=== PATIENT | male | born 1955 | race American Indian/Alaskan Native ===

== ENCOUNTER 2016-10-06 19:56 | Emergency (ER) | payer MEDICAID, OTHER ==
[2016-10-06 20:33] VITALS: BP 144/80
--- NOTE | 2016-10-06 20:45 | EDM.PDOC ---
ED HPI GENERAL MEDICAL PROBLEM - General Chief Complaint: Upper Extremity Injury/Pain Stated Complaint: RIGHT HAND PAIN/SWOLLEN Time Seen by Provider: 10/06/16 20:35 Source of Information: Reports: Patient History Limitations: Reports: No Limitations - History of Present Illness INITIAL COMMENTS - FREE TEXT/NARRATIVE: 61 yo male felt a sharp pain to the dorsum of his R hand last night and had sudden onset of localized swelling. Now the swelling is more diffuse. Has minimal tenderness to the dorsum of that hand and the wrist. Is on Plavix. Onset Date: 10/05/16 Duration: Hour(s): Location: Reports: Upper Extremity, Right Quality: Reports: Dull Severity: Mild Improves with: Reports: Rest, Other (time) Worsens with: Reports: Other (touching area hurts a little. ) Context: Reports: Other (on Plavix) Associated Symptoms: Reports: No Other Symptoms Treatments GEOGRAPHY HEAD: Reports: Other (see below) (None) Right Hand Pain Score (Numeric/FACES): 2 - Related Data Allergies Allergy/AdvReac Type Severity Reaction Status Date / Time Bees Allergy Anaphylactic Uncoded 03/11/14 09:28 Shock Home Meds: Home Meds Aspirin [Low Dose Aspirin EC] 81 mg PO DAILY 11/19/13 [History] Clopidogrel [Plavix] 75 mg PO DAILY 11/19/13 [History] Metoprolol Succinate [Toprol XL] 50 mg PO DAILY 11/19/13 [History] Nitroglycerin [Nitrostat] 0.4 mg SL ASDIRECTED PRN 11/19/13 [History] atorvaSTATin [Lipitor] 80 mg PO BEDTIME 11/19/13 [History] Past Medical History HEENT History: Reports: Impaired Vision Cardiovascular History: Reports: High Cholesterol, Hypertension, [place] Respiratory History: Reports: Other (See Below) Other Respiratory History: pneumonia in the past - Infectious Disease History Infectious Disease History: Reports: Chicken Pox, Influenza, Measles, Mumps Social & Family History - Tobacco Use Smoking Status *Q: Current Every Day Smoker Years of Tobacco use: 40 Packs/Tins Daily: 0.5 - Recreational Drug Use Recreational Drug Use: No Review of Systems - Review of Systems Review Of Systems: See Below Constitutional: Reports: No Symptoms Musculoskeletal: Reports: Hand Pain (R hand dorsally, mild) Skin: Reports: No Symptoms Neurological: Reports: No Symptoms ED EXAM, GENERAL - Physical Exam Exam: See Below Exam Limited By: No Limitations General Appearance: Alert, WD/WN, No Apparent Distress Eye Exam: Bilateral Eye: Normal Inspection Ears: Normal External Exam, Normal Canal, Hearing Grossly Normal Ear Exam: Bilateral Ear: Auricle Normal, Canal Normal Nose: Normal Inspection, Normal Mucosa, No Blood Throat/Mouth: Normal Inspection, Normal Lips, Normal Voice, No Airway Compromise Head: Atraumatic, Normocephalic Neck: Normal Inspection, Supple Respiratory/Chest: No Respiratory Distress, Lungs Clear, No Accessory Muscle Use Cardiovascular: Regular Rate, Rhythm Extremities: Other (R hand minimally puffy dorsally. Minimal tenderness. Wrist with full ROM. Veins on the dorsum of the R hand are less prominant. ) Neurological: Alert, Oriented, CN II-XII Intact, Normal Cognition, No Motor/ Sensory Deficits Psychiatric: Normal Affect, Normal Mood Skin Exam: Warm, Dry, Intact, Normal Color, No Rash, Other (skin is very well tanned.) Course - Vital Signs Last Recorded V/S: Last Vital Signs Temp 36.6 C 10/06/16 20:32 Pulse 81 10/06/16 20:32 Resp 18 10/06/16 20:32 BP 144/80 H 10/06/16 20:32 Pulse Ox 94 L 10/06/16 20:32 Departure - Departure Time of Disposition: 20:45 Disposition: Home, Self-Care 01 Condition: Good Clinical Impression: Bruise - Discharge Information Referrals: Jevon Grigsby PA-C [Primary Care Provider] - Forms: ED Department Discharge Additional Instructions: Elevation above the heart. Acetaminophen 1000 mg every 6 hrs as needed. Recheck as needed.
== END 2016-10-06 20:47 | disposition home or self-care (01) ==
LOC: JP.ED 19:56
DX: S60.221A Contusion of right hand, initial encounter (principal); H54.7 Unspecified visual loss; E78.00 Pure hypercholesterolemia, unspecified; I25.2 Old myocardial infarction; I10 Essential (primary) hypertension; F17.210 Nicotine dependence, cigarettes, uncomplicated; Z87.01 Personal history of pneumonia (recurrent); Z91.030 Bee allergy status; Z79.82 Long term (current) use of aspirin; Z79.899 Other long term (current) drug therapy; X58.XXXA Exposure to other specified factors, initial encounter
CPT/HCPCS: 99283

== ENCOUNTER 2017-03-11 17:22 | Emergency (ER) | payer MEDICAID, OTHER ==
[2017-03-11 17:37] VITALS: BP 154/74
--- NOTE | 2017-03-11 18:10 | EDM.PDOC ---
ED HPI GENERAL MEDICAL PROBLEM - General Chief Complaint: ENT Problem Stated Complaint: BLOODY NOSE Time Seen by Provider: 03/11/17 18:00 Source of Information: Reports: Patient History Limitations: Reports: No Limitations - History of Present Illness INITIAL COMMENTS - FREE TEXT/NARRATIVE: 61-year-old male had a fairly significant nosebleed earlier this evening which is very unusual for him. It scared him because he had trouble getting it stopped. It's now not bleeding. He is on Plavix and aspirin daily. No trauma. No illness. Blood pressures 154/74. Severity: Moderate Associated Symptoms: Reports: Headaches (Patient has a slight anterior left headache) - Related Data Allergies Allergy/AdvReac Type Severity Reaction Status Date / Time Bees Allergy Anaphylactic Uncoded 10/22/16 10:04 Shock Home Meds: Home Meds Aspirin [Low Dose Aspirin EC] 81 mg PO DAILY 11/19/13 [History] Clopidogrel [Plavix] 75 mg PO DAILY 11/19/13 [History] Metoprolol Succinate [Toprol XL] 50 mg PO DAILY 11/19/13 [History] Nitroglycerin [Nitrostat] 0.4 mg SL ASDIRECTED PRN 11/19/13 [History] atorvaSTATin [Lipitor] 80 mg PO DAILY 11/19/13 [History] Isosorbide Mononitrate [Imdur] 30 mg PO DAILY 10/18/16 [History] Past Medical History HEENT History: Reports: Epistaxis, Impaired Vision Cardiovascular History: Reports: High Cholesterol, Hypertension, [place] Respiratory History: Reports: Other (See Below) Other Respiratory History: pneumonia in the past - Infectious Disease History Infectious Disease History: Reports: Chicken Pox, Influenza, Measles, Mumps Social & Family History - Tobacco Use Smoking Status *Q: Current Every Day Smoker Years of Tobacco use: 40 Packs/Tins Daily: 0.5 - Caffeine Use Caffeine Use: Reports: Coffee - Alcohol Use Days Per Week of Alcohol Use: 2 Number of Drinks Per Day: 4 Total Drinks Per Week: 8 - Recreational Drug Use Recreational Drug Use: No ED ROS ENT - Review of Systems Review Of Systems: See Below Constitutional: Denies: Fever, Chills Respiratory: Denies: Shortness of Breath GI/Abdominal: Denies: Nausea, Vomiting Skin: Reports: No Symptoms Neurological: Reports: Headache ED EXAM, ENT - Physical Exam Exam: See Below Exam Limited By: No Limitations General Appearance: Alert, No Apparent Distress Nose: Other (There is some slight evidence of a recent epistaxis on the left side but no focal area of irritation or obvious site of bleeding.) Head: Atraumatic Respiratory/Chest: No Respiratory Distress Course - Vital Signs Last Recorded V/S: Last Vital Signs Temp 97.9 F 03/11/17 17:43 Pulse 82 03/11/17 17:43 Resp 18 03/11/17 17:43 BP 154/74 H 03/11/17 17:43 Pulse Ox 95 03/11/17 17:43 - Re-Assessments/Exams Free Text/Narrative Re-Assessment/Exam: 03/11/17 18:08 When the patient arrived his nose was not actively bleeding. All the clots were blown out in the airway freed, he was observed for another 30 minutes and no bleeding occurred. He will return if it recurs and he can't get it stopped but he was supplied with an external foam nasal compression pincher. Departure - Departure Time of Disposition: 18:18 Disposition: Home, Self-Care 01 Condition: Good Clinical Impression: Epistaxis - Discharge Information Instructions: Nosebleed, [id number] Referrals: Jevon Grigsby PA-C [Primary Care Provider] - Forms: ED Department Discharge Care Plan Goals: Be nice to your nose, avoid rubbing or blowing if possible. If bleeding recurs try external pressure as discussed and return if unable to control bleeding or other concerns.
== END 2017-03-11 18:18 | disposition home or self-care (01) ==
LOC: JP.ED 17:22
DX: R04.0 Epistaxis (principal); I10 Essential (primary) hypertension; E78.00 Pure hypercholesterolemia, unspecified; F17.210 Nicotine dependence, cigarettes, uncomplicated; Z79.82 Long term (current) use of aspirin; Z79.02 Long term (current) use of antithrombotics/antiplatelets; Z79.899 Other long term (current) drug therapy; Z91.030 Bee allergy status
CPT/HCPCS: 99283

== ENCOUNTER 2017-03-11 21:51 | Emergency (ER) | payer MEDICAID, OTHER | END 2017-03-11 23:15 | disposition left against medical advice (07) | LOC: JP.ED 21:51 | DX: Z53.21 Procedure and treatment not carried out due to patient leaving prior to being seen by health care provider (principal) ==

== ENCOUNTER 2018-10-16 16:38 | Emergency (ER) | payer MEDICAID ==
[2018-10-16 16:58] VITALS: BP 140/83
--- NOTE | 2018-10-16 18:00 | EDM.PDOC ---
ED HPI GENERAL MEDICAL PROBLEM - General Chief Complaint: Respiratory Problem Stated Complaint: SEVER ABD PAIN, SOB Time Seen by Provider: 10/16/18 17:30 Source of Information: Reports: Patient, Family History Limitations: Reports: No Limitations - History of Present Illness INITIAL COMMENTS - FREE TEXT/NARRATIVE: 63-year-old male with known lymphoma, had a PET scan 2 days ago and a CT of his neck. He has had oncology consultations but he has increasing pressure and pain in his abdomen and is struggling to breathe at night. Onset: Gradual Duration: Week(s): (Symptoms have been worsening for several weeks) Location: Reports: Chest, Abdomen Worsens with: Reports: Other (Lying down puts increased pressure on his abdomen and chest) Associated Symptoms: Denies: Fever/Chills, Headaches - Related Data Allergies Allergy/AdvReac Type Severity Reaction Status Date / Time Bees Allergy Anaphylactic Uncoded 10/16/18 16:56 Shock Home Meds: Home Meds Metoprolol Succinate [Toprol XL] 50 mg PO DAILY 11/19/13 [History] Nitroglycerin [Nitrostat] 0.4 mg SL ASDIRECTED PRN 11/19/13 [History] atorvaSTATin [Lipitor] 80 mg PO DAILY 11/19/13 [History] Past Medical History HEENT History: Reports: Epistaxis, Impaired Vision Cardiovascular History: Reports: High Cholesterol, Hypertension, [place], Stents Respiratory History: Reports: Other (See Below) Other Respiratory History: pneumonia in the past Genitourinary History: Reports: Acute Renal Failure Oncologic (Cancer) History: Reports: Lymphoma - Infectious Disease History Infectious Disease History: Reports: Chicken Pox, Measles, Mumps - Past Surgical History Cardiovascular Surgical History: Reports: Coronary Artery Stent GI Surgical History: Reports: Other (See Below) Other GI Surgeries/Procedures: enlarged spleen Social & Family History - Tobacco Use Smoking Status *Q: Current Every Day Smoker Years of Tobacco use: 47 Packs/Tins Daily: 0.5 - Caffeine Use Caffeine Use: Reports: Coffee - Recreational Drug Use Recreational Drug Use: No ED ROS GENERAL - Review of Systems Review Of Systems: See Below Constitutional: Denies: Fever, Chills HEENT: Reports: Other (Slow increased swelling of the neck due to adenopathy, no airway compromise) Respiratory: Reports: Shortness of Breath (Feels he can't take a deep breath, and has shortness of breath with activity) Cardiovascular: Reports: Chest Pain (More of a pressure in his lower chest and upper abdomen) GI/Abdominal: Reports: Abdominal Pain, Distension : Reports: No Symptoms Skin: Reports: No Symptoms ED EXAM, GENERAL - Physical Exam Exam: See Below Exam Limited By: No Limitations General Appearance: Alert, No Apparent Distress Eye Exam: Bilateral Eye: Normal Inspection (No jaundice) Throat/Mouth: Normal Inspection Head: Atraumatic Respiratory/Chest: No Respiratory Distress, Lungs Clear Cardiovascular: Regular Rate, Rhythm GI/Abdominal: Distended, Tender, Hepatomegaly Extremities: Normal Inspection. No: Pedal Edema Neurological: Alert, Oriented Psychiatric: Anxious Skin Exam: Warm, Dry Course - Vital Signs Last Recorded V/S: Last Vital Signs Temp 97.5 F 10/16/18 17:06 Pulse 99 10/16/18 17:06 Resp 24 H 10/16/18 17:06 BP 140/83 10/16/18 17:06 Pulse Ox 95 10/16/18 17:06 - Re-Assessments/Exams Free Text/Narrative Re-Assessment/Exam: 10/17/18 07:[address] scan of his neck and PET scan done within the last 3 days. PET scan does not show ascites and lungs look clear but there is no formal reading. I discussed this with his oncologist in [place], and she did not feel any hospitalization was needed at this time but will review the PET scan and call the patient tomorrow. He was given 10 hydrocodone to help him with pain and to help him sleep tonight. He will return tomorrow if worsening and does not hear from his other physicians. Departure - Departure Time of Disposition: 18:17 Disposition: Home, Self-Care 01 Clinical Impression: Abdominal pain Qualifiers: Abdominal location: upper abdomen, unspecified Qualified Code(s): R10.10 - Upper abdominal pain, unspecified Lymphoma Qualifiers: Lymphoma type: unspecified type - Discharge Information Instructions: Abdominal Pain, Adult Referrals: PCP,None [Primary Care Provider] - Forms: ED Department Discharge Care Plan Goals: Continue any current medications, and use stronger pain medication for the next 24-48 hours as needed. Return to the emergency room tomorrow if you do not hear from the oncologist or you feel you're worsening.
== END 2018-10-16 18:17 | disposition home or self-care (01) ==
LOC: JP.ED 16:38
DX: R10.10 Upper abdominal pain, unspecified (principal); C85.90 Non-Hodgkin lymphoma, unspecified, unspecified site; R06.02 Shortness of breath; E78.00 Pure hypercholesterolemia, unspecified; I10 Essential (primary) hypertension; I25.2 Old myocardial infarction; Z95.5 Presence of coronary angioplasty implant and graft; F17.210 Nicotine dependence, cigarettes, uncomplicated; Z91.030 Bee allergy status; Z79.899 Other long term (current) drug therapy
CPT/HCPCS: 99283

== ENCOUNTER 2018-10-30 07:56 | Day surgery (SDC) | payer MEDICAID ==
[~2018-10-30 07:56] MED LIST: Bupivacaine 0.5% 50 ML MDV ONE; Lidocaine 1% with EPINEPHrine 1:100,000 50 ML MDV ONE; Midazolam 1 MG/ML 2 ML SDV ONE; Propofol 200 MG/20 ML SDV ONE; fentaNYL 100 MCG/2 ML SDV ONE
[2018-10-30] MEDS ORDERED: Dextrose 5%-Lactated Ringers 1,000 ML IV SCH (08:30)
[2018-10-30] MEDS ORDERED: Metoprolol Succinate 50 MG Tab.ER PO ONE (08:37)
[2018-10-30] MEDS ORDERED: Ondansetron 4 MG/2 ML SDV IVPUSH ONE (08:59)
[2018-10-30] MEDS ORDERED: ceFAZolin 2 GM in Premix Bag 1 BAG IV ONE (09:00)
[2018-10-30 12:06] VITALS: BP 126/74; PULSE 70
--- NOTE | 2018-11-07 22:35 | OR ---
DATE OF PROCEDURE: 10/30/2018 PREOPERATIVE DIAGNOSIS: Indications for central venous access. POSTOPERATIVE DIAGNOSIS: Indications for central venous access. OPERATIVE PROCEDURE: Placement of Bard PowerPort via left subclavian vein approach ([id number]). ANESTHESIA: Local plus IV sedation. INDICATIONS FOR PROCEDURE: This is a 63-year-old presenting here with aggressive mantle cell lymphoma requiring a central venous access for anticipated chemotherapy. Plan is to proceed with a Bard port placement. Potential risks of the procedure including bleeding, infection, pneumothorax, injury to the vasculature, and problems if the port become infected or occluded were reviewed, and the patient wishes to proceed. DETAILS OF PROCEDURE: The patient was taken to the operating room and after IV sedation was administered, the upper chest and neck areas were prepped and draped. The left subclavian area was anesthetized with 1% lidocaine mixed with Marcaine, and left subclavian vein cannulated. A guidewire passed and positioned into the superior vena cava. Some additional local anesthetic was then injected. A transverse infraclavicular incision was made and carried down through the skin, subcutaneous tissue, and through the pectoralis major fascia. A pocket was then bluntly created behind the pectoralis major fascia. The Bard port at that point was then assembled and flushed with heparinized saline and was placed into the pocket. The catheter was cut such that the tip would lie in the lower superior vena cava and over the introducer and the peel-away catheter was placed over the guidewire. The Bard port catheter was placed without difficulty. Good in and outflow was noted. Ports were flushed once again with heparinized saline. The incision was closed with 2 layers of 3-0 Vicryl stitch deep and a 4-0 Vicryl subcuticular stitch and dressing applied. The patient was taken to the recovery room in satisfactory condition. There were no evident complications. Johnny Lundy MD /[id number]
== END 2018-10-30 12:17 | disposition home or self-care (01) ==
LOC: JP.SDS 07:56
PROVIDERS: ATTEND Surgery
DX: Z45.2 Encounter for adjustment and management of vascular access device (principal); C83.10 Mantle cell lymphoma, unspecified site; Z91.030 Bee allergy status
CPT/HCPCS: 36561; 77001; A9270; C1788; J0690; J1642; J2250; J2405; J2704; J3010; J3490; J7042

== ENCOUNTER 2020-01-17 09:30 | Emergency (ER) | payer MEDICARE, MEDICAID ==
[2020-01-17 10:54] VITALS: BP 128/69; PULSE 61
[2020-01-17] MEDS ORDERED: Sodium Chloride 0.9% 10 ML Syringe FLUSH PRN (11:45)
--- NOTE | 2020-01-17 11:47 | EDM.PDOC ---
ED HPI GENERAL MEDICAL PROBLEM - General Chief Complaint: Lower Extremity Injury/Pain Stated Complaint: LUMP ON LEFT HIP Time Seen by Provider: 01/17/20 11:30 Source of Information: Reports: Patient - History of Present Illness INITIAL COMMENTS - FREE TEXT/NARRATIVE: Rommel is a Very pleasant 64 year old male presents to [place] ER for evaluation of bilateral groin swelling. Rommel has a significant medical history for Mantle Cell Lymphoma which is very aggressive and Rommel believes swelling in bilateral groin is related or recurrence of mantle cell cancer. Rommel feels fine without fever, chills sweats weakness or concerning symptoms of infection, sepsis, low Hgb or electrolyte abnormality. Rommel is very concerned regarding recurrence of cancer at this time. Rommel reports it took over 2 months from diagnosis until initiating treatment, so felt ER evaluation would be most appropriate due to aggressive, rapid nature of Mantle cell lymphoma. Rommel reports the swelling in the left groin was the size of 2 guzmán beans yesterday and swelling right groin was not present yesterday. Neck Pain Score (Numeric/FACES): 4 - Related Data Allergies Allergy/AdvReac Type Severity Reaction Status Date / Time adhesive tape Allergy Rash Verified 01/17/20 11:01 Bees Allergy Severe Anaphylactic Uncoded 01/17/20 11:01 Shock Home Meds: Home Meds Metoprolol Succinate [Toprol XL] 50 mg PO DAILY 11/19/13 [History] Nitroglycerin [Nitrostat] 0.4 mg SL ASDIRECTED PRN 11/19/13 [History] atorvaSTATin [Lipitor] 80 mg PO DAILY 11/19/13 [History] oxyCODONE ER [OxyCONTIN] 10 - 325 mg PO Q6HR PRN 10/30/18 [History] Acyclovir 200 mg PO BID 01/17/20 [History] Finasteride [Proscar] 5 mg PO DAILY 01/17/20 [History] Furosemide 40 mg PO DAILY 01/17/20 [History] Tamsulosin HCl 0.4 mg PO DAILY 01/17/20 [History] Past Medical History HEENT History: Reports: Epistaxis, Impaired Vision, Other (See Below) Other HEENT History: wears glasses Cardiovascular History: Reports: High Cholesterol, Hypertension, [place], SOB on Exertion, Stents, Syncope Respiratory History: Reports: Other (See Below) Other Respiratory History: pneumonia in the past Gastrointestinal History: Reports: None Genitourinary History: Reports: Acute Renal Failure Endocrine/Metabolic History: Reports: Obesity/BMI 30+ Hematologic History: Reports: Other (See Below) Other Hematologic History: low platelets Oncologic (Cancer) History: Reports: Lymphoma Dermatologic History: Reports: Other (See Below) Other Dermatologic History: rash bilat lower legs - Infectious Disease History Infectious Disease History: Reports: Chicken Pox, Measles - Past Surgical History HEENT Surgical History: Reports: None Cardiovascular Surgical History: Reports: Coronary Artery Stent Respiratory Surgical History: Reports: None GI Surgical History: Reports: Other (See Below) Other GI Surgeries/Procedures: enlarged spleen and liver Male Surgical History: Reports: None Endocrine Surgical History: Reports: None Oncologic Surgical History: Reports: Other (See Below) Other Oncologic Surgeries/Procedures: bone marrow biopsy Dermatological Surgical History: Reports: None Social & Family History - Family History Cardiac: Reports: [place] Musculoskeletal: Reports: Back pain, Chronic Neurological: Reports: Alzheimers Disease Oncologic: Reports: Breast, Liver - Tobacco Use Smoking Status *Q: Current Every Day Smoker Years of Tobacco use: 48 Packs/Tins Daily: 0.8 - Caffeine Use Caffeine Use: Reports: Coffee - Recreational Drug Use Recreational Drug Use: Yes Review of Systems - Review of Systems Review Of Systems: Comprehensive ROS is negative, except as noted in HPI. ED EXAM, GENERAL - Physical Exam Exam: See Below Exam Limited By: No Limitations General Appearance: Alert, WD/WN, No Apparent Distress Eye Exam: Bilateral Eye: EOMI, Normal Inspection Ears: Normal External Exam, Hearing Grossly Normal Nose: Normal Inspection Throat/Mouth: Normal Inspection, Normal Voice, No Airway Compromise Head: Normocephalic Neck: Normal Inspection. No: Lymphadenopathy (R), Lymphadenopathy (L) Respiratory/Chest: No Respiratory Distress, Lungs Clear, Normal Breath Sounds, Chest Non-Tender Cardiovascular: Normal Peripheral Pulses, Regular Rate, Rhythm GI/Abdominal: Normal Bowel Sounds, Soft, Non-Tender (Male) Exam: No Hernia, Other (Fullness left groin size of large egg and fullnes right groin size of oblong dime. ) ED TRAUMA EXTREMITY PROCEDURES - Additional/Other Procedure(s) Other (Free Text) Procedure(s): POINT OF CARE ULTRASOUND- SOFT TISSUE EVALUATION Left Groin Indication: Reactive Lymph node vs Abscess Finding: No Fb noted, with cobble stoning of soft tissue indicating infection or inflammation. Dark (anechogenic round mass) without fluid wave and non compressible area measures approximately 8cm x 6 cm x 6 cm noted under area of swelling indicating. No actions taken regarding findings for mass as unable to differentiate from abscess (dark) or reactive lymph node. Benefit of needle aspiration does not out weight risk before and confirmed after speaking with oncology. A bedside ultrasound was performed, and interpreted by myself. Image obtained and reviewed with the patient at bedside and saved, when possible. Patient tolerated the procedure well. POINT OF CARE ULTRASOUND- SOFT TISSUE EVALUATION Right Groin Finding: No Fb noted, with cobble stoning of soft tissue indicating infection or inflammation. Dark (anechogenic round mass) without fluid wave and non compressible area measures approximately 3cm x 2 cm x 2 cm noted under area of swelling indicating. No actions taken regarding findings for mass as unable to differentiate from abscess (dark) or reactive lymph node. Benefit of needle aspiration does not out weight risk before and confirmed after speaking with oncology. A bedside ultrasound was performed, and interpreted by myself. Image obtained and reviewed with the patient at bedside and saved, when possible. Patient tolerated the procedure well. Course - Vital Signs Last Recorded V/S: Last Vital Signs Temp 35.9 C L 01/17/20 11:08 Pulse 61 01/17/20 11:08 Resp 16 01/17/20 11:08 BP 128/69 01/17/20 11:08 Pulse Ox 97 01/17/20 11:08 - Orders/Labs/Meds Orders: Active Orders 24 hr Category Date Time Status Cardiac Monitoring [RC] .As Directed Care 01/17/20 11:46 Active Peripheral IV Care [RC] . DIRECTED Care 01/17/20 11:46 Active Sodium Chloride 0.9% [Saline Flush] Med 01/17/20 11:45 Active 10 ml FLUSH ASDIRECTED PRN Peripheral IV Insertion Adult [OM.PC] Urgent Oth 01/17/20 11:46 Ordered Medication Orders Sodium Chloride (Saline Flush) 10 ml FLUSH ASDIRECTED PRN PRN Reason: Keep Vein Open Labs: Laboratory Tests 01/17/20 01/17/20 01/17/20 Range/Units 11:56 11:56 11:56 WBC (4.5-11.0) K/uL RBC (4.30-5.90) M/uL Hgb (12.0-15.0) g/dL Hct (40.0-54.0) % MCV (80-98) fL MCH (27-31) pg MCHC (32-36) % Plt Count (150-400) K/uL Neut % (Auto) (36-66) % Lymph % (Auto) (24-44) % Potter % (Auto) (2-6) % Eos % (Auto) (2-4) % Baso % (Auto) (0-1) % ESR 33 H (0-20) mm/hr Sodium (140-148) mmol/L Potassium (3.6-5.2) mmol/L Chloride (100-108) mmol/L Carbon Dioxide (21-32) mmol/L Anion Gap (5.0-14.0) mmol/L BUN (7-18) mg/dL Creatinine (0.8-1.3) mg/dL Est Cr Clr Drug Dosing mL/min Estimated GFR (MDRD) (>60) Glucose (74-106) mg/dL Lactic Acid 0.5 (0.4-2.0) mmol/L Calcium (8.5-10.1) mg/dL Total Bilirubin (0.2-1.0) mg/dL AST (15-37) U/L ALT (12-78) U/L Alkaline Phosphatase (46-116) U/L C-Reactive Protein < 0.05 (0.0-0.3) mg/dL Total Protein (6.4-8.2) g/dL Albumin (3.4-5.0) g/dL Globulin (2.3-3.5) g/dL Albumin/Globulin Ratio (1.2-2.2) 01/17/20 01/17/20 Range/Units 11:56 11:56 WBC 5.9 (4.5-11.0) K/uL RBC 4.10 L (4.30-5.90) M/uL Hgb 12.4 D (12.0-15.0) g/dL Hct 37.2 L (40.0-54.0) % MCV 91 (80-98) fL MCH 30 (27-31) pg MCHC 33 (32-36) % Plt Count 112 L (150-400) K/uL Neut % (Auto) 71 H (36-66) % Lymph % (Auto) 18 L (24-44) % Potter % (Auto) 8 H (2-6) % Eos % (Auto) 3 (2-4) % Baso % (Auto) 0 (0-1) % ESR (0-20) mm/hr Sodium 142 (140-148) mmol/L Potassium 4.0 (3.6-5.2) mmol/L Chloride 106 (100-108) mmol/L Carbon Dioxide 25 (21-32) mmol/L Anion Gap 10.7 (5.0-14.0) mmol/L BUN 28 H (7-18) mg/dL Creatinine 1.6 H (0.8-1.3) mg/dL Est Cr Clr Drug Dosing 46.64 mL/min Estimated GFR (MDRD) 44 L (>60) Glucose 97 (74-106) mg/dL Lactic Acid (0.4-2.0) mmol/L Calcium 8.9 (8.5-10.1) mg/dL Total Bilirubin 0.4 (0.2-1.0) mg/dL AST 23 (15-37) U/L ALT 32 (12-78) U/L Alkaline Phosphatase 81 (46-116) U/L C-Reactive Protein (0.0-0.3) mg/dL Total Protein 7.1 (6.4-8.2) g/dL Albumin 3.6 (3.4-5.0) g/dL Globulin 3.5 (2.3-3.5) g/dL Albumin/Globulin Ratio 1.0 L (1.2-2.2) Meds: Medications Generic Name Dose Route Start Last Admin Trade Name Freq PRN Reason Stop Dose Admin Sodium Chloride 10 ml 01/17/20 11:45 Saline Flush FLUSH ASDIRECTED PRN Keep Vein Open - Re-Assessments/Exams Free Text/Narrative Re-Assessment/Exam: Blood test results are not overly concerning for infection but reactive lymph nodes are likely with recurrence of mantle cell lymphoma. Requested recent blood tests from [facility] visit in the last 1-2 weeks. Requested [facility] note regarding Chemotherapy treatments and current prevention. Rituxan last dose Dec 01 due every q8week next due Jan 26. Active chemotherapy treatment: RCHOP 2018 x 1 intermittent dialysis due to poor renal function. Post left anterior chest. VRCAP January 2019 x 6 Cycle without anthracycline. Rituxan since ending acute treatment. James is on acyclovir for viral illness prevention. 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 Treating oncologist: Dasha Cordova MD in [place]. Recommended contacting [facility] on Saturday for recommended follow-up and imaging. 01/17/20 13:25 Reviewed [facility] Records: Blood test 12/22/2019 CMP: Glu 99 BUN: 31 Creat: 1.77 Sod:140 Pot: 4.3 Cl:107 CO2: 24 Walter: 9.2 Alb: 4 Alk: 46 AST:21 ALT:21 Bili T: 0.3 CBC: WBC: 4.2 RBC: 4.05 Hgb:12.6 Hct:36.8 Plt: 101 Blood test 12/02/2019 CMP: Glu 99 BUN: 24 Creat: 1.78 Sod:141 Pot: 4.5 Cl:110 CO2: 27 Walter: 9.0 Alb: 4 Alk: 72 AST:20 ALT:22 Bili T: 0.3 CBC: WBC: 5.4 RBC: 3.83 Hgb:11.8 Hct:35.9 Plt: 75 CODE STATUS: DNR: 02/02/2019 Departure - Departure Time of Disposition: 13:48 Disposition: Home, W Home Health Agency 06 Clinical Impression: Lymph node enlargement - Discharge Information Referrals: Jhonny Bryan TRANSIT MIXER OPERATOR [Primary Care Provider] - Forms: ED Department Discharge Additional Instructions: 1. Call [facility] on Saturday to talk to Oncology nurse about oncology assessment this week which may include CT or MRI imaging. 2. Continue current treatment as recommended. 3. No additional Interventions or Imaging recommended at this time, per mold construction supervisor oncologist, Dr Boo. 4. Return to ER if fever, lightheadedness, weakness, shortness or breath, chest pain or new concerning symptoms. 5. Call PCP to discuss ER visit and follow-up when recommended. Sepsis Event Note (ED) - Evaluation Sepsis Screening Result: No Definite Risk - Focused Exam Vital Signs: Vital Signs Temp Pulse Resp BP Pulse Ox 01/17/20 11:08 35.9 C L 61 16 128/69 97 01/17/20 10:53 35.9 C L 61 16 128/69 97 - My Orders Last 24 Hours: My Active Orders 01/17/20 11:45 Sodium Chloride 0.9% [Saline Flush] 10 ml FLUSH ASDIRECTED PRN 01/17/20 11:46 Cardiac Monitoring [RC] .As Directed Peripheral IV Care [RC] . DIRECTED Peripheral IV Insertion Adult [OM.PC] Urgent - Assessment/Plan Last 24 Hours: My Active Orders 01/17/20 11:45 Sodium Chloride 0.9% [Saline Flush] 10 ml FLUSH ASDIRECTED PRN 01/17/20 11:46 Cardiac Monitoring [RC] .As Directed Peripheral IV Care [RC] . DIRECTED Peripheral IV Insertion Adult [OM.PC] Urgent
== END 2020-01-17 14:14 | disposition home health service (06) ==
LOC: JP.ED 09:30
DX: R59.9 Enlarged lymph nodes, unspecified (principal); C83.10 Mantle cell lymphoma, unspecified site; E78.00 Pure hypercholesterolemia, unspecified; I10 Essential (primary) hypertension; I25.2 Old myocardial infarction; E66.9 Obesity, unspecified; F17.210 Nicotine dependence, cigarettes, uncomplicated; Z91.048 Other nonmedicinal substance allergy status; Z91.030 Bee allergy status; Z79.899 Other long term (current) drug therapy; Z68.30 Body mass index [BMI] 30.0-30.9, adult
CPT/HCPCS: 36415; 80053; 83605; 85025; 85651; 86140; 99283

== ENCOUNTER 2021-02-13 10:03 | Emergency (ER) | payer MEDICARE ==
[2021-02-13] MEDS ORDERED: fentaNYL 100 MCG/2 ML SDV IM ONE (11:42)
[2021-02-13 12:35] VITALS: BP 117/64; PULSE 51
--- NOTE | 2021-02-13 12:51 | EDM.PDOC ---
ED HPI GENERAL MEDICAL PROBLEM - General Chief Complaint: Abdominal Pain Stated Complaint: SOB, HEAD BURNING Time Seen by Provider: 02/13/21 11:20 Source of Information: Reports: Patient, Family, Provider History Limitations: Reports: No Limitations - History of Present Illness INITIAL COMMENTS - FREE TEXT/NARRATIVE: 65-year-old male who is being followed for treatment for lymphoma, was recently down at the [facility] for an experimental treatment. They did hold the treatment however after he developed some abdominal discomfort. An evaluation with an ultrasound revealed mild splenomegaly. The patient was given a prescription for oxycodone, he went in to fill the prescription into the clinic in [place] today and commented to the staff that he was still having abdominal pain so they recommended to go to the emergency room. It really is unchanged from previous levels of pain, however he developed a brief low-grade fever and chills 2 nights ago which has resolved. He has no nausea or vomiting. No recent trauma. Onset: Gradual Duration: Week(s): (Symptoms for the last 1 to 2 weeks) Location: Reports: Abdomen Quality: Reports: Ache, Throbbing Improves with: Reports: None Worsens with: Reports: Eating, Movement Associated Symptoms: Reports: Cough, Weakness. Denies: Chest Pain, Fever/Chills, Nausea/Vomiting, Shortness of Breath Right Abdomen Pain Score (Numeric/FACES): 7 - Related Data Allergies Allergy/AdvReac Type Severity Reaction Status Date / Time adhesive tape Allergy Rash Verified 02/13/21 10:52 Bees Allergy Severe Anaphylactic Uncoded 02/13/21 10:52 Shock Home Meds: Home Meds Metoprolol Succinate [Toprol XL] 50 mg PO DAILY 11/19/13 [History] Nitroglycerin [Nitrostat] 0.4 mg SL ASDIRECTED PRN 11/19/13 [History] oxyCODONE ER [OxyCONTIN] 10 - 325 mg PO Q6HR PRN 10/30/18 [History] Acyclovir 200 mg PO BID 01/17/20 [History] Finasteride [Proscar] 5 mg PO DAILY 01/17/20 [History] Tamsulosin HCl 0.4 mg PO DAILY 01/17/20 [History] Rosuvastatin [Crestor] 40 mg PO DAILY 02/13/21 [History] Past Medical History HEENT History: Reports: Epistaxis, Impaired Vision, Other (See Below) Other HEENT History: wears glasses Cardiovascular History: Reports: High Cholesterol, Hypertension, [place], SOB on Exertion, Stents, Syncope Respiratory History: Reports: Other (See Below) Other Respiratory History: pneumonia in the past Gastrointestinal History: Reports: None Genitourinary History: Reports: Acute Renal Failure Endocrine/Metabolic History: Reports: Obesity/BMI 30+ Hematologic History: Reports: Other (See Below) Other Hematologic History: low platelets Oncologic (Cancer) History: Reports: Lymphoma Dermatologic History: Reports: Other (See Below) Other Dermatologic History: rash bilat lower legs - Infectious Disease History Infectious Disease History: Reports: Chicken Pox, Measles - Past Surgical History HEENT Surgical History: Reports: None Cardiovascular Surgical History: Reports: Coronary Artery Stent Respiratory Surgical History: Reports: None GI Surgical History: Reports: Other (See Below) Other GI Surgeries/Procedures: enlarged spleen and liver Male Surgical History: Reports: None Endocrine Surgical History: Reports: None Oncologic Surgical History: Reports: Other (See Below) Other Oncologic Surgeries/Procedures: bone marrow biopsy Dermatological Surgical History: Reports: None Social & Family History - Family History Cardiac: Reports: [place] Musculoskeletal: Reports: Back pain, Chronic Neurological: Reports: Alzheimers Disease Oncologic: Reports: Breast, Liver - Tobacco Use Tobacco Use Status *Q: Heavy Tobacco User Years of Tobacco use: 50 Packs/Tins Daily: 1 - Caffeine Use Caffeine Use: Reports: Coffee - Recreational Drug Use Recreational Drug Use: No ED ROS GENERAL - Review of Systems Review Of Systems: See Below Constitutional: Reports: Fever (Low-grade fever 2 nights ago), Chills, Malaise HEENT: Denies: Nosebleed, Throat Pain Respiratory: Denies: Shortness of Breath, Cough Cardiovascular: Denies: Chest Pain GI/Abdominal: Reports: Abdominal Pain, Decreased Appetite. Denies: Nausea, Vomiting Skin: Reports: Other (No jaundice, scattered bruises are present). Denies: Pallor Neurological: Denies: Headache Psychiatric: Reports: No Symptoms ED EXAM, GI/ABD - Physical Exam Exam: See Below Exam Limited By: No Limitations General Appearance: Alert, No Apparent Distress Eyes: Bilateral: Normal Appearance Respiratory/Chest: No Respiratory Distress, Lungs Clear Cardiovascular: Regular Rate, Rhythm. No: Tachycardia GI/Abdominal Exam: Soft, Tender, Other (Does react with tenderness to various areas on the abdomen but no focal tenderness or rebound) Neurological: Alert, Oriented Psychiatric: Normal Affect, Normal Mood Skin Exam: Warm, Dry Course - Vital Signs Last Recorded V/S: Last Vital Signs Temp 98.3 F 02/13/21 10:56 Pulse 51 L 02/13/21 12:34 Resp 18 02/13/21 10:56 BP 117/64 02/13/21 12:34 Pulse Ox 93 L 02/13/21 12:34 - Orders/Labs/Meds Labs: Laboratory Tests 02/13/21 02/13/21 02/13/21 Range/Units 11:50 11:50 11:50 WBC 4.7 (4.5-11.0) K/uL RBC 3.46 L (4.30-5.90) M/uL Hgb 11.1 L (12.0-15.0) g/dL Hct 33.4 L (40.0-54.0) % MCV 97 (80-98) fL MCH 32 H (27-31) pg MCHC 33 (32-36) % Plt Count 21 L* (150-400) K/uL Neut % (Auto) 61.1 (36-66) % Lymph % (Auto) 33.8 (24-44) % Upson % (Auto) 4.9 (2-6) % Eos % (Auto) 0.0 L (2-4) % Baso % (Auto) 0.2 (0-1) % PT 11.6 H (9.2-10.6) sec INR 1.1 Sodium 133 L (140-148) mmol/L Potassium 4.2 (3.6-5.2) mmol/L Chloride 98 L (100-108) mmol/L Carbon Dioxide 22 (21-32) mmol/L Anion Gap 17.2 H (5.0-14.0) mmol/L BUN 34 H (7-18) mg/dL Creatinine 1.6 H (0.8-1.3) mg/dL Est Cr Clr Drug Dosing 46.03 mL/min Estimated GFR (MDRD) 44 L (>60) Glucose 96 (74-106) mg/dL Calcium 7.8 L (8.5-10.1) mg/dL Total Bilirubin 0.5 (0.2-1.0) mg/dL AST 37 (15-37) U/L ALT 36 (12-78) U/L Alkaline Phosphatase 69 (46-116) U/L Total Protein 5.9 L (6.4-8.2) g/dL Albumin 3.1 L (3.4-5.0) g/dL Globulin 2.8 (2.3-3.5) g/dL Albumin/Globulin Ratio 1.1 L (1.2-2.2) Lipase 127 (73-393) U/L Meds: Medications Discontinued Medications Generic Name Dose Route Start Last Admin Trade Name Yaron PRN Reason Stop Dose Admin Fentanyl 50 mcg 02/13/21 11:42 02/13/21 12:36 Fentanyl 100 Mcg/2 Ml Sdv IM 02/13/21 11:43 50 mcg ONETIME ONE Administration - Re-Assessments/Exams Free Text/Narrative Re-Assessment/Exam: 02/13/21 16:57 CBC and CMP was checked especially to follow the recent development of thrombocytopenia. Result was 21,000, LFTs are normal. I had a long discussion with his oncologist at [facility], she was very reassured with the levels that he was at and was not too concerned about the 21,000 platelet count. He has not filled his oxycodone yet, he was given 50 mcg of IM fentanyl and encouraged to fill his pain medications and can recheck if not improving. His oncologist did mention that his spleen was only "mildly enlarged" where the patient said it was so large that if he has trauma he will . She was not sure where he got that information. 02/13/21 16:59 Patient will return tomorrow if his pain is not controlled with the oxycodone or he develops worsening symptoms such as persistent fever, nausea or vomiting or other concerns. Departure - Departure Time of Disposition: 13:00 Disposition: Home, Self-Care 01 Clinical Impression: Thrombocytopenia Abdominal pain Qualifiers: Abdominal location: upper abdomen, unspecified Qualified Code(s): R10.10 - Upper abdominal pain, unspecified Lymphoma Qualifiers: Lymphoma type: unspecified type - Discharge Information Instructions: Abdominal Pain, Adult, [id number] Referrals: Jhonny Bryan DISEASE CASE MANAGER [Primary Care Provider] - Forms: ED Department Discharge Care Plan Goals: Fill your pain medication, continue your medications as prescribed and return for reevaluation if you develop persistent fever, increased pain resistant to pain medication, or other concerns. Sepsis Event Note (ED) - Evaluation Sepsis Screening Result: No Definite Risk - Focused Exam Vital Signs: Vital Signs Temp Pulse Resp BP Pulse Ox 02/13/21 12:34 51 L 117/64 93 L 02/13/21 11:26 96 125/71 02/13/21 10:56 98.3 F 98 18 125/74 94 L 02/13/21 10:52 98.3 F 98 18 125/74 94 L
== END 2021-02-13 13:00 | disposition home or self-care (01) ==
LOC: JP.ED 10:03
DX: C85.90 Non-Hodgkin lymphoma, unspecified, unspecified site (principal); D69.6 Thrombocytopenia, unspecified; R10.11 Right upper quadrant pain; E78.00 Pure hypercholesterolemia, unspecified; I10 Essential (primary) hypertension; I25.2 Old myocardial infarction; E66.9 Obesity, unspecified; Z68.30 Body mass index [BMI] 30.0-30.9, adult; Z72.0 Tobacco use; Z91.048 Other nonmedicinal substance allergy status; Z91.030 Bee allergy status; Z79.899 Other long term (current) drug therapy
CPT/HCPCS: 36415; 80053; 83690; 85025; 85610; 96372; 99284; J3010